=== PATIENT | female | born 1950 | race Caucasian/White ===

== ENCOUNTER → 2018-10-20 | Outpatient (CLI) | payer OTHER ==
[~2018-10-20] MED LIST: ASPIR-TRIN325 MG PO; ATIVAN0.5 MG; CEPHALEXIN500 M1 PO; CIPRO500 MG PO; CITALOPRAM10 MG PO; CORTISPORIN 1%7.5 M1 OP; FLUOXETINE HCL10 MG PO; KCL; LASIX40 MG PO; LISINOPRIL/HCTZ1 TA4 PO; LISINOPRIL20 MG; Lopressor25 MG PO; MEDROL DOSEPAK4 MG PO; METFORMIN500 MG PO; MOBIC15 MG; MOBIC7.5 MG PO; POTASSIUM600 MG PO; Percocet 325 MG1 TAB PO; TOPROL XL25 MG PO; VIBRAMYCIN100 MG PO; ZOFRAN4 MG PO; [UNRECOGNIZED DRUG - OTHER]; [UNRECOGNIZED DRUG - REMARK]; [UNRECOGNIZED DRUG - REMARK]
== END ==
LOC: ORTHO 07:49
DX: M25.511 Pain in right shoulder (principal)

== ENCOUNTER → 2019-04-21 | Day surgery (SDC) | payer MEDICARE, OTHER ==
[2019-03-03 10:51] VITALS: BP 144/55
[2019-03-17 06:40] VITALS: BP 150/75
[~2019-04-21] VITALS: Ht 154.9 cm; Wt 84.8 kg
--- NOTE | ~2019-04-21 | O ---
[place], [place] OPERATIVE NOTE NAME: CHERRIEJUAN LUIS Bruce [facility] #: [id number] UNIT #: [id number] ROOM: DOCTOR: TERESITA HUNTER DO BIRTHDATE: [birth year] DOS: 04/21/2019 PREPROCEDURE DIAGNOSES: Right shoulder rotator cuff tear with impingement, subacromial and acromioclavicular joint arthritis. POSTOPERATIVE DIAGNOSES: Right shoulder rotator cuff tear with subacromial impingement, and acromioclavicular joint arthritis. OPERATIVE PROCEDURE: Right shoulder open rotator cuff repair with subacromial decompression and Michel. SURGEON: Teresita Hunter DO. IRRIGATION EQUIPMENT MECHANIC: Jack. ANESTHESIA: LINA Sal, interscalene block with general and endotracheal intubation. INDICATIONS: The patient is a 68-year-old female with a history of right shoulder pain unrelieved with conservative care. The rotator cuff tear of the supraspinatus attachment and complete retraction was confirmed by MRI. The patient has had a progression of her symptoms. The risks and benefits of the procedure were explained to the patient preoperatively. Preoperative labs and x-rays were obtained. The surgery had been previously postponed due to psoriatic or eczema about the shoulder region. DESCRIPTION OF PROCEDURE: The right shoulder was marked in the holding room. An interscalene block was performed by Anesthesia. The patient was brought to the operative suite. The patient was placed supine on the operative table. A general anesthetic with endotracheal intubation was performed. The patient received clindamycin 900 mg. The patient was placed in a modified beach chair position. Appropriate padding was performed of the bony prominences. Time-out was performed. The right shoulder and upper extremity were prepped and draped in the usual orthopedic manner. The incision was planned along the anterior acromion to the coracoid process and marked with a marking pen. The area was injected with Marcaine 0.5% with epinephrine. The incision was made sharply with a scalpel. Subcutaneous tissue was spread down to the level of the deltoid fascia. The deltoid fascia was divided along its fibers. The superior portion of the deltoid was removed from acromion. The bursa was debrided. The humeral head was identified and noted to be uncovered with lack of rotator cuff attachment. There was noted to be subscapularis tendon attached. The remainder of the cuff was difficult to retrieve due to retraction. An osteotome was used to remove the anterior portion of the acromion to better evaluate and retrieve the rotator cuff. The distal clavicle was exposed and electrocautery was used to remove the capsule. An oscillating saw was used to remove the distal 0.5-1 cm clavicle. There was noted to be significant degenerative changes. A handheld rasp was used to gently smooth the [place], [place] OPERATIVE NOTE NAME: JUAN LUIS GRIER UNIT #: [id number] ROOM: DOCTOR: TERESITA HUNTER DO BIRTHDATE: [birth year] undersurface of the acromion and the clavicle. The area was copiously irrigated with normal saline. The torn edges of the supraspinatus and infraspinatus tendons were identified. An [facility] clamp was used to grasp the scarred tissue and gently freed from the undersurface of the acromion bringing it forward. This was released. Two [employer]c SwiveLock bone anchors were placed at the junction of the articular surface following the usual punch preparations followed by advancement of the anchor by hand. The scarred edges of the supraspinatus and infraspinatus tendons were grasped with the scorpion suture passer and the FiberTape was advanced. This was repeated. A SpeedBridge was then completed using a SwiveLock and passing of the FiberTape through the anchor and then utilizing the bone punch followed by the advancement of the second pair of SwiveLock anchors with a SpeedBridge fashion. The repair was evaluated and noted to not include the entire portion of available rotator cuff. The stay sutures from the SwiveLock were then placed through a Scorpio passer and additional cuff material was captured in a horizontal mattress suture fashion. A fifth bone anchor was utilized to advance this additional repair essentially creating further reinforcement of the cuff. When this was completed, the area was copiously irrigated with normal saline. The repair was evaluated and did not appear to be improved with further fixation. The deltoid was returned to the anterior acromion with #2 FiberWire and reinforced anteriorly. The acromioclavicular capsule was repaired in a similar fashion. The remainder of the deltoid fascia was repaired with 0 Vicryl in a [id number] fashion. 4-0 Vicryl was used to close the subcutaneous layer. Closure was completed with skin susan. The area was again injected with Marcaine 0.5% with epinephrine. Incision was covered with Adaptic, 4 x 4s, ABD pads and a Tegaderm dressing. A sling and swathe with an abduction pillow was applied. The anesthetic was reversed. The patient was extubated and taken to recovery room in satisfactory condition. Sponge and needle count correct. ESTIMATED BLOOD LOSS: 50 mL. SPECIMENS: Distal clavicle. DRAINS: None. PACKING: None. COMPLICATIONS: None. IMPLANTS: 5 [employer]rex [employer] SwiveLock bone anchors were placed. [place], [place] OPERATIVE NOTE NAME: JUAN LUIS GRIER UNIT #: [id number] ROOM: DOCTOR: TERESITA HUNTER DO BIRTHDATE: [birth year] TERESITA HUNTER DO CM:OPRECORD:OPERATIVE NOTE 34 12 TERESITA HUNTER DO 04/21/192111 interface
[2019-04-21 06:45] VITALS: BP 151/67
[2019-04-21 11:07] VITALS: BP 158/62
[2019-04-21 11:22] VITALS: BP 158/62
[2019-04-21 11:37] VITALS: BP 158/69
[2019-04-21 11:52] VITALS: BP 149/66
[2019-04-21 12:08] VITALS: BP 148/69
== END | disposition home or self-care (01) ==
LOC: SDC 03-03 10:15
DX: M75.101 Unspecified rotator cuff tear or rupture of right shoulder, not specified as traumatic (principal); M25.811 Other specified joint disorders, right shoulder; M19.011 Primary osteoarthritis, right shoulder; E11.9 Type 2 diabetes mellitus without complications; F41.9 Anxiety disorder, unspecified; F32.9 Major depressive disorder, single episode, unspecified; I10 Essential (primary) hypertension; E66.9 Obesity, unspecified; Z68.35 Body mass index [BMI] 35.0-35.9, adult; Z90.49 Acquired absence of other specified parts of digestive tract; Z88.8 Allergy status to other drugs, medicaments and biological substances; Z88.0 Allergy status to penicillin; Z98.890 Other specified postprocedural states; Z79.899 Other long term (current) drug therapy; Z79.52 Long term (current) use of systemic steroids; Z82.49 Family history of ischemic heart disease and other diseases of the circulatory system; Z83.3 Family history of diabetes mellitus

== ENCOUNTER → 2019-07-06 | Outpatient (CLI) | payer MEDICARE, OTHER, MEDICAID | END | disposition home or self-care (01) | LOC: RAD 10:36 | DX: I25.10 Atherosclerotic heart disease of native coronary artery without angina pectoris (principal); R06.2 Wheezing ==

== ENCOUNTER → 2019-09-07 | Outpatient (CLI) | payer MEDICARE, MEDICAID | END | disposition home or self-care (01) | LOC: CARD 09:24 | DX: I07.1 Rheumatic tricuspid insufficiency (principal); I70.0 Atherosclerosis of aorta ==

== ENCOUNTER → 2019-09-28 | Outpatient (CLI) | payer MEDICARE, MEDICAID | END | disposition home or self-care (01) | LOC: ORTHO 01:04 | DX: M19.011 Primary osteoarthritis, right shoulder (principal) ==

== ENCOUNTER → 2019-10-31 | Outpatient (CLI) | payer OTHER, MEDICAID ==
[2019-10-31 13:50] LABS: BASO # 0.1 10*3/uL (0.0-0.1); BASO % 1.1 % (0.0-1.0); EOS # 0.5 10*3/uL (0.0-0.4); EOS % 5.1 % (1.0-4.0); HEMATOCRIT 40.9 % (37.0-47.0); HEMOGLOBIN 13.1 g/dl (12.0-16.0); LYMPH % 28.1 % (27.0-41.0); MEAN CELL VOLUME 89.5 fl (81.0-99.0); MEAN CORPUSCULAR HGB 28.7 pg (27.0-31.0); MEAN PLATELET VOLUME 9.3 fl (9.6-12.3); MONO # 1.3 10*3/uL (0.1-1.0); MONO % 12.4 % (3.0-9.0); NEUT # 5.6 10*3/uL (2.3-7.9); NEUT % 52.9 % (47.0-73.0); PLATELET COUNT AUTOMATED 497 10*3/uL (130-400); RED BLOOD COUNT 4.57 10*6/uL (4.10-5.10); RED CELL DISTRI WIDTH 13.5 % (0-14.5); WHITE BLOOD COUNT 10.6 10*3/uL (4.8-10.8)
[2019-10-31 14:19] LABS: ALBUMIN 3.8 gm/dl (3.1-4.5); ALKALINE PHOSPHATASE 62 U/L (45-117); BUN 24 mg/dl (7-24); CHLORIDE 106 mmol/L (98-107); CREATININE 1.01 mg/dL (0.55-1.02); POTASSIUM 4.4 mmol/L (3.5-5.1); SGOT/AST 18 IU/L (3-35); SGPT/ALT 24 U/L (12-78); SODIUM 139 mmol/L (136-145); TOTAL PROTEIN 8.3 gm/dL (6.4-8.2)
== END | disposition home or self-care (01) ==
LOC: LAB 13:20
PROVIDERS: Nurse Practitioner Primary Care
DX: I10 Essential (primary) hypertension (principal); E55.9 Vitamin D deficiency, unspecified; E11.9 Type 2 diabetes mellitus without complications

== ENCOUNTER → 2021-06-04 | Outpatient (CLI) | payer OTHER, MEDICAID | END | disposition home or self-care (01) | LOC: US 10:30 | PROVIDERS: ATTEND Nurse Practitioner Primary Care | DX: N63.21 Unspecified lump in the left breast, upper outer quadrant (principal) ==

== ENCOUNTER → 2021-08-28 | Day surgery (SDC) | payer OTHER, MEDICAID ==
[~2021-08-28] VITALS: Ht 154.9 cm; Wt 81.6 kg
[~2021-08-28] MED LIST changes: +ASPIRIN81 M1 PO; +FLUOXETINE40 MG PO; +LISINOPRIL20 MG PO; +PLAVIX75 M1 PO; +PRAVASTATIN SOD40 MG PO
[2021-08-28 08:05] VITALS: BP 127/61
[2021-08-28 09:10] VITALS: BP 104/46
[2021-08-28 09:25] VITALS: BP 88/32
[2021-08-28 09:40] VITALS: BP 96/46
== END | disposition home or self-care (01) ==
LOC: SDC 08-23 12:30
PROVIDERS: ATTEND Ophthalmology
DX: H25.812 Combined forms of age-related cataract, left eye (principal); I10 Essential (primary) hypertension; E11.9 Type 2 diabetes mellitus without complications; K21.9 Gastro-esophageal reflux disease without esophagitis; F41.9 Anxiety disorder, unspecified; M19.90 Unspecified osteoarthritis, unspecified site; Z86.718 Personal history of other venous thrombosis and embolism; Z95.5 Presence of coronary angioplasty implant and graft; Z88.0 Allergy status to penicillin; Z88.6 Allergy status to analgesic agent; Z79.899 Other long term (current) drug therapy; Z20.822 Contact with and (suspected) exposure to COVID-19

== ENCOUNTER → 2021-09-25 | Day surgery (SDC) | payer OTHER, MEDICAID ==
[~2021-09-25] VITALS: Ht 162.5 cm; Wt 81.6 kg
[2021-09-25 07:45] VITALS: BP 144/57
[2021-09-25 09:23] VITALS: BP 129/62
[2021-09-25 09:38] VITALS: BP 128/57
[2021-09-25 09:52] VITALS: BP 101/50
== END | disposition home or self-care (01) ==
LOC: SDC 09-20 08:45
PROVIDERS: ATTEND Ophthalmology
DX: H25.811 Combined forms of age-related cataract, right eye (principal); I10 Essential (primary) hypertension; E11.9 Type 2 diabetes mellitus without complications; K21.9 Gastro-esophageal reflux disease without esophagitis; F41.9 Anxiety disorder, unspecified; I25.10 Atherosclerotic heart disease of native coronary artery without angina pectoris; M19.90 Unspecified osteoarthritis, unspecified site; Z95.5 Presence of coronary angioplasty implant and graft; Z88.0 Allergy status to penicillin; Z88.6 Allergy status to analgesic agent; Z88.8 Allergy status to other drugs, medicaments and biological substances; Z79.899 Other long term (current) drug therapy

== ENCOUNTER → 2021-10-30 | Outpatient (CLI) | payer OTHER, MEDICAID | END | disposition home or self-care (01) | LOC: US 10:43 | PROVIDERS: ATTEND Obstetrics & Gynecology | DX: D25.2 Subserosal leiomyoma of uterus (principal) ==

== ENCOUNTER → 2022-02-26 | Outpatient (CLI) | payer OTHER, MEDICAID | END | disposition home or self-care (01) | LOC: LAB 11:31 | PROVIDERS: ATTEND Nurse Practitioner Primary Care | DX: E11.9 Type 2 diabetes mellitus without complications (principal); E55.9 Vitamin D deficiency, unspecified ==

== ENCOUNTER → 2022-09-11 | Outpatient (CLI) | payer OTHER, MEDICAID | END | disposition home or self-care (01) | LOC: MAMMO 13:30 | PROVIDERS: ATTEND Internal Medicine | DX: N63.21 Unspecified lump in the left breast, upper outer quadrant (principal); N63.10 Unspecified lump in the right breast, unspecified quadrant; R92.8 Other abnormal and inconclusive findings on diagnostic imaging of breast; R92.2 Inconclusive mammogram ==

== ENCOUNTER → 2023-04-17 | Outpatient (CLI) | payer OTHER, MEDICAID ==
[2023-04-17 08:52] LABS: BASO # 0.1 10*3/uL (0.0-0.1); BASO % 0.8 % (0.0-1.0); EOS # 0.3 10*3/uL (0.0-0.4); EOS % 2.9 % (1.0-4.0); HEMATOCRIT 42.7 % (37.0-47.0); LYMPH # 1.8 10*3/uL (1.3-4.4); LYMPH % 16.5 % (27.0-41.0); MEAN CELL VOLUME 90.1 fl (81.0-99.0); MEAN CORPUSCULAR HGB 28.5 pg (27.0-31.0); MEAN CORPUSCULAR HGB CONC 31.6 g/dl (33.0-37.0); MEAN PLATELET VOLUME 8.7 fl (9.6-12.3); MONO # 1.1 10*3/uL (0.1-1.0); MONO % 9.9 % (3.0-9.0); NEUT # 7.5 10*3/uL (2.3-7.9); NEUT % 69.6 % (47.0-73.0); PLATELET COUNT AUTOMATED 419 10*3/uL (130-400); RED BLOOD COUNT 4.74 10*6/uL (4.10-5.10); RED CELL DISTRI WIDTH 14.1 % (0-14.5); WHITE BLOOD COUNT 10.8 10*3/uL (4.8-10.8)
[2023-04-17 09:19] LABS: ALKALINE PHOSPHATASE 61 U/L (46-116); BUN 21 mg/dl (9-23); CHLORIDE 102 mmol/L (98-107); POTASSIUM 4.1 mmol/L (3.4-5.1); SGPT/ALT 14 U/L (10-49); TOTAL PROTEIN 7.5 gm/dL (6.0-8.0)
[2023-04-21 07:06] LABS: TB1 Ag VALUE 0.04 IU/mL (.)
== END | disposition home or self-care (01) ==
LOC: LAB 08:22
PROVIDERS: ATTEND Physician Assistant Surgical
DX: L30.9 Dermatitis, unspecified (principal); E78.5 Hyperlipidemia, unspecified

== ENCOUNTER → 2023-09-15 | Outpatient (CLI) | payer OTHER, MEDICAID | END | disposition home or self-care (01) | LOC: US 02:04 | PROVIDERS: ATTEND Internal Medicine | DX: I73.9 Peripheral vascular disease, unspecified (principal); I11.9 Hypertensive heart disease without heart failure; M10.9 Gout, unspecified; M19.042 Primary osteoarthritis, left hand; M19.041 Primary osteoarthritis, right hand; Z95.828 Presence of other vascular implants and grafts ==

== ENCOUNTER → 2024-01-20 | Outpatient (CLI) | payer OTHER, MEDICAID ==
[2024-01-20 08:41] LABS: URIC ACID 7.2 mg/dL (3.1-7.8)
== END | disposition home or self-care (01) ==
LOC: LAB 05:14 → MAMMO 08:30 → LAB 08:30
PROVIDERS: ATTEND Nurse Practitioner Primary Care
DX: Z12.31 Encounter for screening mammogram for malignant neoplasm of breast (principal); E78.5 Hyperlipidemia, unspecified; E11.9 Type 2 diabetes mellitus without complications; M1A.0710 Idiopathic chronic gout, right ankle and foot, without tophus (tophi)

== ENCOUNTER → 2024-05-30 | Outpatient (CLI) | payer OTHER, MEDICAID ==
[2024-05-30 09:54] LABS: CHOLESTEROL 124 mg/dL (<200); LDL CHOLESTEROL 68 mg/dL (9-159); TRIGLYCERIDES 89 mg/dl (<150)
== END | disposition home or self-care (01) ==
LOC: LAB 08:30
PROVIDERS: ATTEND Registered Nurse
DX: I25.10 Atherosclerotic heart disease of native coronary artery without angina pectoris (principal)

== ENCOUNTER 2025-01-18 18:46 | Emergency (ER) | payer OTHER, MEDICAID ==
[~2025-01-18] VITALS: Wt 69.9 kg
[2025-01-18 20:53] VITALS: BP 142/84
== END 2025-01-18 20:50 | disposition short-term general hospital (02) ==
LOC: ED 18:46
DX: S02.2XXA Fracture of nasal bones, initial encounter for closed fracture (principal); S06.30AA Unspecified focal traumatic brain injury with loss of consciousness status unknown, initial encounter; I10 Essential (primary) hypertension; E11.9 Type 2 diabetes mellitus without complications; K21.9 Gastro-esophageal reflux disease without esophagitis; F41.9 Anxiety disorder, unspecified; M19.90 Unspecified osteoarthritis, unspecified site; Z79.82 Long term (current) use of aspirin; Z79.899 Other long term (current) drug therapy; Z88.0 Allergy status to penicillin; Z88.8 Allergy status to other drugs, medicaments and biological substances; W18.39XA Other fall on same level, initial encounter; Y93.89 Activity, other specified; Y92.89 Other specified places as the place of occurrence of the external cause; Y99.8 Other external cause status